=== PATIENT | female | born 1965 | race Caucasian/White ===

== ENCOUNTER 2016-11-16 20:11 | Emergency (ER) | payer BC ==
[~2016-11-16] VITALS: Ht 162.6 cm; Wt 100.9 kg
[~2016-11-16 20:11] MED LIST: IBUP-1542 PO
[2016-11-16 20:14] VITALS: Ht 162.6 cm; Wt 100.9 kg
[2016-11-16] MEDS ORDERED: SODIUM CHLORIDE 0.9% 1L BAG IV* STA (22:04)
[2016-11-16] MEDS ORDERED: CEFEPIME 2GM/50 ML (PMX) 50 ML IVPB STA (22:04)
[2016-11-16] MEDS ORDERED: ONDANSETRON 4 MG INJ IV STA (22:04)
[2016-11-16] MEDS ORDERED: morphine 4 MG/ML VIAL IV STA (22:04)
--- NOTE | 2016-11-16 22:46 | RADRPT ---
PROCEDURE: XR Chest. CLINICAL INDICATION: Possible sepsis. TECHNIQUE: Single frontal view of the chest was obtained COMPARISON: None FINDINGS: The heart and mediastinum are within normal limits. The lungs are clear. There is no pleural effusion or pneumothorax. IMPRESSION: No acute disease. RPTAT: [facility] Physician Marcelino Date Time Electronically viewed and signed by Erin Lizarraga Physician on 11/16/2016 22:46 RS/
[2016-11-16 23:05] LABS: BASOPHILS % 0.2 % (0.0-2.0); EOSINOPHILS % 0.3 % (0.0-7.0); HEMATOCRIT 37.8 % (37.0-47.0); HEMOGLOBIN 12.8 g/dl (12.0-16.0); LYMPHOCYTES # 3.2 10^3/ul (0.8-2.9); LYMPHOCYTES % 24.5 % (15.0-51.0); MEAN CORPUSCULAR HEMOGLOBIN 29.2 pg (29.0-33.0); MEAN CORPUSCULAR HGB CONC 33.8 g/dl (32.0-37.0); MEAN CORPUSCULAR VOLUME 86.3 fl (82.0-101.0); MEAN PLATELET VOLUME 8.1 fl (7.4-10.4); MONOCYTE # 0.9 10^3/ul (0.3-0.9); MONOCYTES % 6.8 % (0.0-11.0); NEUTROPHIL # 8.9 10^3/ul (1.6-7.5); NEUTROPHILS % 68.2 % (39.0-77.0); PLATELET COUNT 329 10^3/UL (140-440); RED BLOOD COUNT 4.39 10^6/ul (4.20-5.40); RED CELL DISTRIBUTION WIDTH 12.6 % (11.5-14.5)
[2016-11-16 23:06] LABS: CONDITION 1
[2016-11-16 23:07] LABS: ADD UMIC YES; URINE BILIRUBIN (Dip) NEGATIVE (NEGATIVE); URINE BLOOD (Dip) 2+ (NEGATIVE); URINE COLOR LT. YELLOW (YELLOW); URINE GLUCOSE (Dip) NEGATIVE (NEGATIVE); URINE KETONES (Dip) NEGATIVE (NEGATIVE); URINE LEUKOCYTE ESTERASE (Dip) 3+ (NEGATIVE); URINE NITRITE (Dip) NEGATIVE (NEGATIVE); URINE TOTAL PROTEIN (Dip) 1+ (NEGATIVE); URINE UROBILINOGEN (Dip) 0.2 E.U./dL (0.1-1.0)
[2016-11-16 23:10] LABS: INR 0.94; PROTIME 12.6 Sec (12.2-14.2)
[2016-11-16 23:19] LABS: CHLORIDE 98 mmol/L (97-110); POTASSIUM 3.9 mmol/L (3.5-5.1); SODIUM 138 mmol/L (135-144)
[2016-11-16 23:21] LABS: ALBUMIN/GLOBULIN RATIO 1.02; ALKALINE PHOSPHATASE 141 IU/L (42-121); ANION GAP 18 (8-16); ASPARTATE AMINO TRANSFERASE 18 IU/L (15-46); BILIRUBIN,INDIRECT 0.6 mg/dl (0-1.1); BILIRUBIN,TOTAL 0.6 mg/dl (0.2-1.3); CARBON DIOXIDE 26 mmol/L (21-31); CREATININE 0.49 mg/dl (0.44-1.00); TOTAL PROTEIN 7.9 g/dl (6.1-8.1)
[2016-11-16 23:22] LABS: BACTERIA,URINE MODERATE; SQUAMOUS EPITHELIAL CELL,UR MODERATE
[2016-11-16 23:22] LABS: ALANINE AMINOTRANSFERASE 32 IU/L (13-69); BLOOD UREA NITROGEN 7 mg/dl (7-20); CALCIUM 9.8 mg/dl (8.4-10.2); GLUCOSE 223 mg/dl (70-220)
[2016-11-16 23:37] LABS: TROPONIN-I < 0.012 ng/ml (0.00-0.12)
[2016-11-17] MEDS ORDERED: morphine 4 MG/ML VIAL IV STA (00:59)
[2016-11-17] MEDS ORDERED: DICLOFENAC SODIUM 37.5 MG/ML VIAL IV STA (00:59)
--- NOTE | 2016-11-17 01:44 | RADRPT ---
PROCEDURE: CT Abdomen and pelvis without contrast. CLINICAL INDICATION: Abdominal pain. TECHNIQUE: CT scan of the abdomen and pelvis was performed on the [employer] 6 4 slice VCT scanner. Contiguous axial images using 2.5 mm slice thickness were obtained from the vasyl ng bases to the ischial tuberosities without intravenous contrast. Coronal and sagittal reformatted images were also obtained. Images were reviewed on the PACS workstation. One or more of the following dose reduction techniques were used: - Automated exposure control. - Adjustment of the mA and/or kV according to patient size. - Use of iterative reconstruction technique. Exam CTD/vol = 18.44 mGy. Total exam DLP = 1077.82 mGy-cm. COMPARISON: 07/27/2016. FINDINGS: Evaluation of the lung bases demonstrates minimal bibasilar atelectasis. Abdomen: The liver is normal in size. There is no focal mass or dilatation of the biliary tree. T he patient is status post cholecystectomy. The spleen, pancreas and bilateral adrenal glands are wi thin normal limits. Bilateral kidneys are normal in size with no contour deforming mass identified. There is no radiopaque renal calculus identified. There is mild right-sided hydronephrosis with m inimal stranding. There is no retroperitoneal adenopathy. The abdominal aorta is of normal caliber . There is no abnormal bowel wall thickening or distension. There is no bowel obstruction or free air . A normal appendix is identified. There is no diverticulosis or diverticulitis. There is no asci monica. Pelvis: The bladder is unremarkable. The uterus and adnexa are within normal limits. There is a 2 mm calculus at the right ureterovesicular junction. There is no significant pelvic adenopathy or f ree fluid. Evaluation of the osseous structures demonstrates no suspicious lytic or blastic lesion. IMPRESSION: Right ureterovesicular junction 2 mm calculus with mild right-sided hydronephrosis. Status post cholecystectomy. .Jacek Marcano MD, Date Time Electronically viewed and signed by .Jacek Marcano MD, MD on 11/17/2016 01:44 .T/
[2016-11-17] MEDS ORDERED: NITR-58 PO (02:51)
[2016-11-17] MEDS ORDERED: NAPR-688 PO (02:51)
[2016-11-17] MEDS ORDERED: CIPR500T4 PO (02:51)
[2016-11-17] MEDS ORDERED: HYDR-906 PO (02:51)
[2016-11-17] MEDS ORDERED: ONDA4TAB11 PO (02:51)
--- NOTE | 2016-11-17 03:10 | ERA ---
ER Documentation Chief Complaint Date/Time DATE: 11/17/16 TIME: 02:53 Chief Complaint abd pain/ pelvic pain x 1 week HPI 51-year-old female presents with 4 days of superpubic abdominal pain that has not transitioned to her left flank area. States that the pain was mild for 3 days became more severe today. Nothing makes it better or worse. She has had nausea and vomiting as well. Denies fever and chills that she does have a fever in the emergency room today. He has had no recent trauma. ROS All systems reviewed and are negative except as per history of present illness. Medications Home Meds Active Scripts Ondansetron (Zofran Odt) 4 Mg Tab.rapdis, 4 MG PO Q6, #10 Prov:HARI VILLA DO 11/17/16 Naproxen* (Naproxen*) 500 Mg Tablet, 500 MG PO BID Y for q6, #20 TAB Prov:ALLENHARI DO 11/17/16 Hydrocodone/Acetaminophen ([place] 5-325 Tablet) 1 Each Tablet, 1 EACH PO Q6, #20 TAB Prov:ALLENHARI DO 11/17/16 Nitrofurantoin Monohyd Macrocr* (Macrobid*) 100 Mg Capsr, 100 MG PO HS for 10 Days, CAP Prov:ALLENHARI DO 11/17/16 Ciprofloxacin Hcl* (Ciprofloxacin Hcl*) 500 Mg Tablet, 500 MG PO BID for 10 Days , TAB Prov:HARI VILLA 11/17/16 Ibuprofen* (Motrin*) 600 Mg Tab, 600 MG PO Q6H Y for PAIN AND OR ELEVATED TEMP, #30 TAB Prov:MAGY FRY MD 07/27/16 Allergies Allergies: Coded Allergies: No Known Allergy (Unverified , 07/27/16) PMhx/Soc History of Surgery: Yes (, GALL STONES) Anesthesia Reaction: No Hx Neurological Disorder: No Hx Respiratory Disorders: No Hx Cardiac Disorders: No Hx Psychiatric Problems: No Hx Miscellaneous Medical Probl: No (pre-diabetic) Hx Alcohol Use: Yes (SOCIALLY) Hx Substance Use: No Hx Tobacco Use: No Smoking Status: Never smoker Physical Exam Vitals Vital Signs Date Time Temp Pulse Resp B/P Pulse Ox O2 Delivery O2 Flow Rate FiO2 11/16/16 20:14 100.9 100 20 141/51 98 Physical Exam Const: [] No distress Head: Atraumatic Eyes: Normal Conjunctiva ENT: Normal External Ears, Nose and Mouth. Neck: Full range of motion..~ No meningismus. Resp: Clear to auscultation bilaterally Cardio: Regular tachycardia, no murmurs Abd: Soft, mild suprapubic tenderness, non distended. Normal bowel sounds Skin: No petechiae or rashes Back: No midline or flank tenderness Ext: No cyanosis, or edema Neur: Awake and alert and oriented 3, no focal deficits Psych: Normal Mood and Affect Result Diagram: 11/16/16222911/16/162229 Results 24 hrs Laboratory Tests Test 11/16/16 22:30 11/16/16 22:40 11/16/16 22:46 11/17/16 00:45 Activated Partial Thromboplast Time 32.0Sec Alanine Aminotransferase (ALT/SGPT) 32IU/L Albumin 4.0g/dl Albumin/Globulin Ratio 1.02 Alkaline Phosphatase 141IU/L Anion Gap 18 Aspartate Amino Transf (AST/SGOT) 18IU/L Basophils # 0.010^3/ul Basophils % 0.2% Blood Urea Nitrogen 7mg/dl Calcium Level 9.8mg/dl Carbon Dioxide Level 26mmol/L Chloride Level 98mmol/L Creatinine 0.49mg/dl Direct Bilirubin 0.00mg/dl Eosinophils # 0.010^3/ul Eosinophils % 0.3% Globulin 3.90g/dl Glucose Level 223mg/dl Hematocrit 37.8% Hemoglobin 12.8g/dl INR International Normalized Ratio 0.94 Indirect Bilirubin 0.6mg/dl Lactic Acid Level 1.5mmol/L 1.5mmol/L Lymphocytes # 3.210^3/ul Lymphocytes % 24.5% Mean Corpuscular Hemoglobin 29.2pg Mean Corpuscular Hemoglobin Concent 33.8g/dl Mean Corpuscular Volume 86.3fl Mean Platelet Volume 8.1fl Monocytes # 0.910^3/ul Monocytes % 6.8% Neutrophils # 8.910^3/ul Neutrophils % 68.2% Nucleated Red Blood Cells # 0.010^3/ul Nucleated Red Blood Cells % 0.0/100WBC Platelet Count 51009^3/UL Potassium Level 3.9mmol/L Prothrombin Time 12.6Sec Prothrombin Time Ratio 1.0 Red Blood Count 4.3910^6/ul Red Cell Distribution Width 12.6% Sodium Level 138mmol/L Total Bilirubin 0.6mg/dl Total Protein 7.9g/dl Troponin I < 0.012ng/ml White Blood Count 13.010^3/ul Urine Bacteria MODERATE Urine Bilirubin NEGATIVE Urine Clarity CLOUDY Urine Color LT. YELLOW Urine Glucose NEGATIVE% Urine Hemoglobin 2+ Urine Ketones NEGATIVE Urine Leukocyte Esterase 3+ Urine Microscopic RBC 5-10/HPF Urine Microscopic WBC >200/HPF Urine Nitrite NEGATIVE Urine Specific Apollo 1.010 Urine Squamous Epithelial Cells MODERATE Urine Total Protein 1+ Urine Urobilinogen 0.2 E.U./dL Urine pH 6.0 Bedside Glucose 222mg/dL Current Medications Medications (Trade) Dose Ordered Sig/Rosa Route PRN Reason Start Time Stop Time Status Last Admin Dose Admin Sodium Chloride 3130 ml 3,130 ml BOLUS OVER 2 HOURS STAT IV* 11/16/16 22:04 11/16/16 22:07 DC 11/16/16 22:42 Cefepime HCl (Maxipime 2gm/50 ml (Pmx)) 50 ml @ 100 mls/hr ONCE STAT IVPB 11/16/16 22:04 11/16/16 22:33 DC 11/16/16 22:59 Morphine Sulfate (morphine) 4 mg ONCE STAT IV 11/16/16 22:04 11/16/16 22:07 DC 11/16/16 22:42 Ondansetron HCl (Zofran Inj) 4 mg ONCE STAT IV 11/16/16 22:04 11/16/16 22:07 DC 11/16/16 22:42 Morphine Sulfate (morphine) 4 mg ONCE STAT IV 11/17/16 00:59 11/17/16 01:00 DC 11/17/16 01:07 Diclofenac Sodium (Dyloject) 37.5 mg ONCE STAT IV 11/17/16 00:59 11/17/16 01:01 DC 11/17/16 01:07 Procedures/MDM UTI with mild sepsis and proximal ureteral stone. Patient minimal sepsis criteria with a low white count, 100 heart rate and fever. His workup was initiated patient was given cefepime. States that she has had multiple urinary tract infections in the past. Denies cough. She is hydrated 30 mL/kg of IV fluid and given Zofran and morphine for the pain. She was then given an extra dose of morphine and Dilaudid injection the pain returned. This helped her pain greatly. Pain did return she noted this of morphine. Call Dr. Loco to admit the patient did not want to admit her and did not see the reason to admit you Sepsis. He came to the emergency room and ordered a CAT scan stated the patient should go home if normal. CAT scan revealed a 2 mm proximal ureteral stone. I called him to notify him that she may have a septic stone. Today data was septic and he recommended discharge home with antibiotics and follow-up in the office first thing in the morning and he would set the patient up with urologist. She is feeling better she does not want to stay in the hospital. I am going to discharge her with instructions to see her doctors in the office in the morning. I'm discharging her with [place], naproxen, Zofran ODT, Macrobid, Cipro. Urine cultures are taken. Patient's septic vital signs have stabilized with ER treatment. Vital signs are currently stable and she is afebrile and feels better. Chest x-ray interpretation: No acute process, no widening the standing, no pneumothorax, no infiltrate, no pulmonary edema, no fracture CT abdomen pelvis interpretation: 2 mm proximal ureteral stone at the UVJ with mild hydronephrosis., No obstruction, no free air, no fractures surveillance monitor interpretation: Sinus tachycardia followed by normal sinus rhythm after fluid administration. EKG interpretation: Normal sinus rhythm rate of 97, normal axis, no ST-T wave changes concerning for acute ischemia, normal EKG Medical care time 34 minutes: This includes the treatment of pyelonephritis with sepsis in a patient with a possible septic stone, early pneumonic and menstruation, careful fluid administration, chart review, multiple visits to the patient's bedside assess status, multiple discussions with the wriggle physician tempting to patient, this does not include time spent performing any billable procedures. Departure Diagnosis: Primary Impression: Ureteral colic Additional Impressions: Pyelonephritis Sepsis Hyperglycemia Condition: Stable Patient Instructions: Understanding Urinary Tract Infections (UTIs) Additional Instructions: Call your primary care doctor TOMORROW for a SAME-DAY APPOINTMENT. Get a urological referral tomorrow as well. Tell the office secretary that you were referred from this facility.Call again if your condition worsens before your appointment time. HARI VILLA DO Nov 17, 2016 03:05
[2016-11-17 03:29] VITALS: BP 111/56; PULSE 71; RESP 17; TEMP 98.1
[2016-11-17] MEDS ORDERED: ONDANSETRON 4 MG INJ IV PRN (03:30)
[2016-11-17] MEDS ORDERED: ACETAMINOPHEN 325 MG TAB PO PRN (03:30)
--- NOTE | 2016-11-17 04:06 | CONS ---
DATE OF ADMISSION: 11/16/2016 DATE OF CONSULTATION: 11/17/2016 MEDICINE CONSULTATION REFERRING PHYSICIAN: Dr. Betancur, [facility] REASON FOR CONSULTATION: Left-sided abdominal pain. HISTORY OF PRESENT ILLNESS: Ms. Hodges presents to the emergency room at [facility] h approximately a 2 to 3 day history of left-sided abdominal pain which she localizes primarily to l eft lower quadrant but is also in the left flank. This is not associated with any dysuria, nausea, vomiting, or diarrhea. She has not required much in the way of pain medication; however, the pain w orsened today, and she decided to go to the urgent care and was referred here to the emergency room. PAST MEDICAL HISTORY: Nil. MEDICATIONS: As an outpatient are nil. ALLERGIES: NIL. SOCIAL HISTORY: Lives at home in [place] with her . Works as a medical office receptionist assistant. She went to work today. She denies tobacco, alcohol, or illicit drug use. FAMILY HISTORY: Noncontributory. REVIEW OF SYSTEMS: Five systems were reviewed and found not to be revealing. PHYSICAL EXAMINATION: VITAL SIGNS: Blood pressure is 141/51, pulse rate 100, respirations 20, temperature 100.9, saturati ng 98% on room air. GENERAL: Pleasant woman in no acute distress, alert and oriented x3. HEENT: Normocephalic, atraumatic without scleral icterus or perioral cyanosis. Mucous membranes ar e moist. NECK: Soft and supple without masses. No obvious jugular venous distention or carotid bruit. CHEST: Clear to auscultation and percussion bilaterally. HEART: Regular rate and rhythm, S1-S2, no added sounds. ABDOMEN: Soft, nontender, and nondistended without palpable hepatosplenomegaly. EXTREMITIES: Without clubbing, cyanosis, or edema. SKIN: Without rashes. NEUROLOGIC: Grossly intact. LABORATORY DATA: Reveal hemoglobin 12.8 g/dL, white count of 13,000, platelets of 329,000. INR is 1.0. Sodium 138, potassium 3.9, chloride 98, bicarbonate 26, BUN 7, creatinine 0.5, glucose 223. L iver function tests are unremarkable save an alkaline phosphatase of 141. is 1.5. Urinalysis shows 3+ leukocyte esterase with approximately 200 white blood cells, [address] to [address] scan o f the abdomen performed without contrast shows 2 mm calculus in the right UVJ. ASSESSMENT AND PLAN: 1. Genitourinary: The patient with urinary tract infection. She received cefepime here in the ER. We will continue treatment with Levaquin. 2. The patient with 2 mm stone. This is likely to pass in the near term future. Continue pain con trol. We will have the patient follow up with urology next available. 3. Disposition: At this point, the patient is stable for discharge to home and to follow up with h er primary care physician. Dictated By: MENDY TONY MD RER/NTS Conf#: [id number] DID#: [id number]
== END 2016-11-17 03:29 | disposition home or self-care (01) ==
LOC: E/R 20:11
DX: N23 Unspecified renal colic (principal); N12 Tubulo-interstitial nephritis, not specified as acute or chronic; A41.9 Sepsis, unspecified organism; R11.2 Nausea with vomiting, unspecified; R73.9 Hyperglycemia, unspecified
CPT/HCPCS: 71010; 74176; 80053; 81001; 82962; 83605; 84484; 85025; 85610; 85730; 87040; 87086; 93005; J2270; J2405; J7030; 36415; 81003; 96374; 96375; 96376